=== PATIENT | female | born 1960 | race Caucasian/White ===

== ENCOUNTER 2018-11-04 07:13 | Day surgery (SDC) | payer MEDICAID ==
[~2018-11-04 07:13] MED LIST: CEFAZOLIN 2 GM/50 ML (PMX) 50 ML IVPB; SOD CHLORIDE 0.9% 1,000 ML IV
[2018-11-04 08:09] LABS: ADD MAN DIFF? NO
[2018-11-04 08:11] LABS: WHITE BLOOD COUNT 7.1 10^3/ul (4.8-10.8)
[2018-11-04 08:11] LABS: BASOPHILS % 0.3 % (0.0-2.0); EOSINOPHILS # 0.1 10^3/ul (0.0-0.5); HEMATOCRIT 36.2 % (37.0-47.0); HEMOGLOBIN 11.6 g/dl (12.0-16.0); LYMPHOCYTES # 3.5 10^3/ul (0.8-2.9); LYMPHOCYTES % 49.1 % (15.0-51.0); MEAN CORPUSCULAR HEMOGLOBIN 28.9 pg (29.0-33.0); MEAN CORPUSCULAR VOLUME 90.3 fl (82.0-101.0); MEAN PLATELET VOLUME 11.1 fl (7.4-10.4); MONOCYTE # 0.5 10^3/ul (0.3-0.9); MONOCYTES % 6.8 % (0.0-11.0); NEUTROPHILS % 41.7 % (39.0-77.0); PLATELET COUNT 220 10^3/UL (140-415); RED BLOOD COUNT 4.01 10^6/ul (4.20-5.40); RED CELL DISTRIBUTION WIDTH 13.2 % (11.5-14.5)
[2018-11-04 08:31] LABS: INR 0.89; PARTIAL THROMBOPLASTIN TIME 27.3 Sec (23.0-35.0); PROTIME 12.2 Sec (11.9-14.9)
[2018-11-04 08:42] LABS: ALBUMIN/GLOBULIN RATIO 1.11; ALKALINE PHOSPHATASE 43 IU/L (42-121); ANION GAP 5 (5-13); ASPARTATE AMINO TRANSFERASE 25 IU/L (15-46); BILIRUBIN,INDIRECT 0.2 mg/dl (0-1.1); BILIRUBIN,TOTAL 0.2 mg/dl (0.2-1.3); BLOOD UREA NITROGEN 13 mg/dl (7-20); CALCIUM 9.4 mg/dl (8.4-10.2); CARBON DIOXIDE 29 mmol/L (21-31); CHLORIDE 108 mmol/L (97-110); CREATININE 0.51 mg/dl (0.44-1.00); Estimated GFR > 60 mL/min (>60); GLUCOSE 93 mg/dl (70-220); POTASSIUM 4.6 mmol/L (3.5-5.1); SODIUM 142 mmol/L (135-144); TOTAL PROTEIN 7.6 g/dl (6.1-8.1)
[2018-11-04] MEDS: BUPIVACAINE 0.5%/EPI (SDV) 30 ML INJ (08:59)
[2018-11-04 09:14] LABS: ALANINE AMINOTRANSFERASE 20 IU/L (13-69)
[2018-11-04] MEDS ORDERED: PROPOFOL 100 ML (09:15)
[2018-11-04] MEDS ORDERED: FENTAnyl 50 MCG/ML VIAL (09:18)
[2018-11-04] MEDS ORDERED: LIDOCAINE 2% (SDV) 5 ML INJ (09:18)
[2018-11-04] MEDS ORDERED: CEFAZOLIN 1 GM INJ (09:44)
[2018-11-04] MEDS: LIDOCAINE 1% (MPF) 30 ML INJ (09:47)
[2018-11-04] MEDS ORDERED: LABETALOL HCL 20MG INJ IV (10:30)
[2018-11-04] MEDS ORDERED: MEPERIDINE 25 MG INJ IV (10:30)
[2018-11-04] MEDS ORDERED: FENTAnyl 50 MCG/ML VIAL IV ×2 (10:30)
[2018-11-04] MEDS ORDERED: ONDANSETRON 4 MG INJ IV (10:30)
[2018-11-04] MEDS ORDERED: hydrALAzine 20 MG INJ IV (10:30)
[2018-11-04] MEDS ORDERED: OXYCODONE/ACETAMINOPHEN (5/325) TAB PO ×2 (10:30)
[2018-11-04] MEDS ORDERED: DIPHENHYDRAMINE 50 MG INJ IV (10:30)
[2018-11-04] MEDS ORDERED: EPHEDrine SULFATE 50 MG/5 ML SYG IV (10:30)
== END 2018-11-04 11:32 | disposition home or self-care (01) ==
LOC: SDS 07:13
DX: D17.22 Benign lipomatous neoplasm of skin and subcutaneous tissue of left arm (principal)
CPT/HCPCS: 11404; 71045; 80053; 85025; 85610; 85730; 88307; 93005